=== PATIENT | female | born 1980 | race Two or more races ===

== ENCOUNTER 2018-08-13 14:38 | Emergency (ER) | payer OTHER ==
[~2018-08-13] VITALS: Ht 154.9 cm; Wt 72.1 kg
[~2018-08-13 14:38] MED LIST: CALCIUM1 TAB PO; LISINOPRIL10 MG PO; PERCOCET 5/321 UDTAB PO; POTASSIMIN75 MG PO; PREDNISONE
== END 2018-08-13 19:06 | disposition home or self-care (01) ==
LOC: ER 14:38
DX: H66.92 Otitis media, unspecified, left ear (principal); J01.00 Acute maxillary sinusitis, unspecified; B34.9 Viral infection, unspecified

== ENCOUNTER 2018-09-20 14:07 | Emergency (ER) | payer OTHER ==
[~2018-09-20] VITALS: Ht 154.9 cm; Wt 70.3 kg
[2018-09-20] MEDS ORDERED: CELLCEPT500 MG (14:30)
[2018-09-20] MEDS ORDERED: PLAQUENIL PO (14:31)
== END 2018-09-20 18:40 | disposition home or self-care (01) ==
LOC: ER 14:07
DX: R51 Headache (principal)

== ENCOUNTER 2019-05-07 19:06 | Emergency (ER) | payer OTHER ==
[~2019-05-07] VITALS: Ht 154.9 cm; Wt 72.6 kg
[~2019-05-07 19:06] MED LIST changes: +CELLCEPT500 MG; +PLAQUENIL PO
[2019-05-07] MEDS ORDERED: VITAMIN C500 MG (19:23)
[2019-05-07] MEDS ORDERED: ZESTRIL2.5 MG (19:23)
[2019-05-07] MEDS ORDERED: ZYRTEC10 M3 (19:24)
== END 2019-05-07 22:50 | disposition home or self-care (01) ==
LOC: ER 19:06
DX: J11.1 Influenza due to unidentified influenza virus with other respiratory manifestations (principal); B96.0 Mycoplasma pneumoniae [M. pneumoniae] as the cause of diseases classified elsewhere

== ENCOUNTER 2021-07-20 21:57 | Emergency (ER) | payer OTHER ==
[~2021-07-20] VITALS: Ht 152.4 cm; Wt 81.6 kg
[~2021-07-20 21:57] MED LIST changes: +VITAMIN C500 MG; +ZESTRIL2.5 MG; +ZYRTEC10 M3
[2021-07-20] MEDS ORDERED: SYNTHROID137 MCG (22:38)
== END 2021-07-20 23:54 | disposition home or self-care (01) ==
LOC: ER 21:57
DX: M54.32 Sciatica, left side (principal); E11.9 Type 2 diabetes mellitus without complications; Z79.84 Long term (current) use of oral hypoglycemic drugs; E03.9 Hypothyroidism, unspecified; I10 Essential (primary) hypertension; A18.4 Tuberculosis of skin and subcutaneous tissue; N28.9 Disorder of kidney and ureter, unspecified

== ENCOUNTER → 2022-05-16 | Emergency (ER) | payer OTHER ==
[~2022-05-16] VITALS: Ht 170.2 cm; Wt 76.2 kg
[~2022-05-16] MED LIST changes: +SYNTHROID137 MCG
== END | disposition left against medical advice (07) ==
LOC: ER 21:57
DX: Z53.21 Procedure and treatment not carried out due to patient leaving prior to being seen by health care provider (principal)

== ENCOUNTER → 2022-05-17 | Emergency (ER) | payer OTHER ==
[~2022-05-17] VITALS: Ht 154.9 cm; Wt 76.7 kg
== END | disposition home or self-care (01) ==
LOC: ER 10:40
DX: B34.9 Viral infection, unspecified (principal); E03.9 Hypothyroidism, unspecified; I10 Essential (primary) hypertension; Z20.822 Contact with and (suspected) exposure to COVID-19